=== PATIENT | female | born 1950 | race Hispanic/Latino ===

== ENCOUNTER 2018-05-20 11:10 | Emergency (ER) | payer MEDICARE, OTHER ==
[~2018-05-20] VITALS: Ht 165.1 cm; Wt 77.1 kg
--- OUTSIDE RECORDS SUMMARY | 2018-05-20 11:12 | XMS REPORT | Clinical Summary ---
Author Author LUIGI [facility] Organization [facility] Address Unknown Phone Unavailable Care Team Providers Care Boilermaking Supervisor Name Role Phone Zakia Russell PCP Unavailable Allergies Not on File Medications Not on file Active Problems Not on file Encounters Care Team Description Date Type Specialty Sudheer Acuna MD Screening for osteoporosis 07/30/2017 Hospital Encounter Sudheer Acuna MD Visit for screening mammogram 07/30/2017 Hospital Encounter System, Provider Not In Screening for osteoporosis (Primary Dx) 07/23/2017 Outside Orders Central Scheduling after 05/19/2017 Social History Date Tobacco Use Types Packs/Day Years Used Never Assessed Sex Assigned at Date Recorded Not on file Industry Job Start Date Occupation Not on file Not on file Not on file Travel End Travel History Travel Start No recent travel history available. Last Filed Vital Signs Not on file Plan of Treatment Not on file Procedures Comments Procedure Name Priority Date/Time Associated Diagnosis XR DXA BONE DENSITY STUDY Routine 07/30/2017 Screening for 2:42 PM CDT osteoporosis MM DIGITAL MAMMO SCREEN Routine 07/30/2017 Visit for screening BILATERAL 2:13 PM CDT mammogram after 05/19/2017 Results * XR DXA Bone Density Study (07/30/2017 2:42 PM CDT) Narrative Performed At FINAL REPORT [facility] Bone Mineral Density, 07/30/2017. History Provided: Screening Comparison: 07/21/2014. Findings: Bone Mineral Density Measurement (BMD) - Lumbar Spine: 1.068 gm/cm2 Left Femoral Neck: 0.857 gm/cm2 Right Femoral Neck: 0.811 gm/cm2 Standard Deviation as compared to the young adult population (T -score)- Lumbar Spine: -0.9 Left Femoral Neck: -1.3 Right Femoral Neck: -1.6 Standard Deviation as compared to the age matched controls (Z-score)- Lumbar Spine: 0.2 Left Femoral Neck: -0.2 Right Femoral Neck: -0.5 IMPRESSION: WHO classification of osteopenia for the bilateral femoral necks. WHO classification of normal for the lumbar spine. Compared to the prior exam, the bone mineral density of the lumbar spine demonstrates a 1.2% decrease.The bone density of the left femoral neck demonstrates a 4.5% decrease.The bone mineral density of the right femoral neck demonstrates a 3.4% increase. Diagnostic criteria (World Health Organization)- Normal: BMD measurement less than one standard deviation from young adult population Osteopenia: BMD measurement between 1 and 2.4 standard deviations below Osteoporosis: BMD measurement greater than or equal to 2.5 standard deviations below Severe osteoporosis: Osteoporosis and one or more fragility fractures Signed: Briana Rocha MD Report Verified Date/Time:07/30/2017 14:44:40 Reading Location: [facility] Mammo Reading Room Procedure Note Interface, External Ris In - 07/30/2017 2:46 PM CDT FINAL REPORT Bone Mineral Density, 07/30/2017. History Provided: Screening Comparison: 07/21/2014. Findings: Bone Mineral Density Measurement (BMD) - Lumbar Spine: 1.068 gm/cm2 Left Femoral Neck: 0.857 gm/cm2 Right Femoral Neck: 0.811 gm/cm2 Standard Deviation as compared to the young adult population (T -score)- Lumbar Spine: -0.9 Left Femoral Neck: -1.3 Right Femoral Neck: -1.6 Standard Deviation as compared to the age matched controls (Z-score)- Lumbar Spine: 0.2 Left Femoral Neck: -0.2 Right Femoral Neck: -0.5 IMPRESSION: WHO classification of osteopenia for the bilateral femoral necks. WHO classification of normal for the lumbar spine. Compared to the prior exam, the bone mineral density of the lumbar spine demonstrates a 1.2% decrease. The bone density of the left femoral neck demonstrates a 4.5% decrease. The bone mineral density of the right femoral neck demonstrates a 3.4% increase. Diagnostic criteria (World Health Organization)- Normal: BMD measurement less than one standard deviation from young adult population Osteopenia: BMD measurement between 1 and 2.4 standard deviations below Osteoporosis: BMD measurement greater than or equal to 2.5 standard deviations below Severe osteoporosis: Osteoporosis and one or more fragility fractures Signed: Briana Rocha MD Report Verified Date/Time: 07/30/2017 14:44:40 Reading Location: [facility] Mammo Reading Room Performing Organization Address City/State/Zipcode Phone Number [facility] * Mammogram Screening Bilateral (07/30/2017 2:13 PM CDT) Narrative Performed At [facility] #[id number] - MM, DIGITAL, MAMMO, SCREENING, BILATERAL INCLUDING CAD BILATERAL DIGITAL SCREENING MAMMOGRAM WITH CAD: 07/30/2017 Comparison is made to exams dated:09/04/2015 mammogram and 07/21/2014 mammogram - [facility]. The tissue of both breasts is heterogeneously dense. This may lower the sensitivity of mammography. Current study was also evaluated with a Computer Aided Detection (CAD) system. Benign appearing calcifications are present in both breasts.No significant masses, calcifications, or other findings are seen in either breast. IMPRESSION: BENIGN There is no mammographic evidence of malignancy. A 1 year screening mammogram is recommended. Shell Davidson M.D. pth/penrad:07/30/2017 16:07:39 Normal Exam Mammogram BI-RADS: 2 Benign G0202 Procedure Note Interface, External Ris In - 07/31/2017 7:29 AM CDT #[id number] - MM, DIGITAL, MAMMO, SCREENING, BILATERAL INCLUDING CAD BILATERAL DIGITAL SCREENING MAMMOGRAM WITH CAD: 07/30/2017 Comparison is made to exams dated: 09/04/2015 mammogram and 07/21/2014 mammogram - [facility]. The tissue of both breasts is heterogeneously dense. This may lower the sensitivity of mammography. Current study was also evaluated with a Computer Aided Detection (CAD) system. Benign appearing calcifications are present in both breasts. No significant masses, calcifications, or other findings are seen in either breast. IMPRESSION: BENIGN There is no mammographic evidence of malignancy. A 1 year screening mammogram is recommended. Shell Davidson M.D. pth/penrad:07/30/2017 16:07:39 Normal Exam Mammogram BI-RADS: 2 Benign G0202 Performing Organization Address City/State/Zipcode Phone Number [facility] after 05/19/2017 Insurance Payer Benefit Subscriber ID Type Phone Address Plan / Group [employer] - MGD CARE [employer] xxxxxxxxxxx HMO/POS HMO/POS/OP EN ACCESS
--- OUTSIDE RECORDS SUMMARY | 2018-05-20 11:12 | XMS REPORT ---
Author Author [facility] Address Unknown Phone Unavailable Care Team Providers Care Cruise Guide Name Role Phone Unavailable Unavailable Problems This patient has no known problems. Allergies, Adverse Reactions, Alerts This patient has no known allergies or adverse reactions. Medications This patient has no known medications. Results Test Description Test Time Test Comments Text Results Atomic Results Result Comments MM, DIGITAL, MAMMO, SCREENING, BILATERAL INCLUDING CAD 2017-07-30 16:07:00 Reason for Exam:->Z12.31 #[id number] - MM, DIGITAL, MAMMO, SCREENING, BILATERAL INCLUDING CADBILATERAL DIGITAL SCREENING MAMMOGRAM WITH CAD: 07/30/2017Comparison is made to exams dated: 09/04/2015 mammogram and 07/21/2014 mammogram - [facility]. The tissue of both breasts is heterogeneously dense. This may lower the sensitivity of mammography. Current study was also evaluated with a Computer Aided Detection (CAD) system. Benign appearing calcifications are present in both breasts. No significant masses, calcifications, or other findings are seen in either breast. IMPRESSION: BENIGNThere is no mammographic evidence of malignancy. A 1 year screening mammogram is recommended. Shell Davidson M.D. pth/penrad:07/30/2017 16:07:39 Normal Exam Mammogram BI-RADS: 2 Benign G0202 , BONE DENSITY STUDY 2017-07-30 14:44:00 Reason for Exam:->screening FINAL REPORT Bone Mineral Density, 07/30/2017. History Provided: Screening Comparison: 07/21/2014. Findings: Bone Mineral Density Measurement (BMD) -Lumbar Spine: 1.068 gm/uw3Mbzr Femoral Neck: 0.857 gm/nw2Xemdy Femoral Neck: 0.811 gm/cm2 Standard Deviation as compared to the young adult population (T -score)-Lumbar Spine: -0.9 Left Femoral Neck: -1.3 Right Femoral Neck: -1.6 Standard Deviation as compared to the age matched controls (Z-score)-Lumbar Spine: 0.2Left Femoral Neck: -0.2 Right Femoral Neck: -0.5 IMPRESSION:WHO classification of osteopenia for the bilateral femoral necks. WHO classification of normal for the lumbar spine. Compared to the prior exam, the bone mineral density of the lumbar spine demonstrates a 1.2% decrease. The bone density of the left femoral neck demonstrates a 4.5% decrease. The bone mineral density of the right femoral neck demonstrates a 3.4% increase. Diagnostic criteria (World Health Organization)-Normal: BMD measurement less than one standard deviation from young adult populationOsteopenia: BMD measurement between 1 and 2.4 standard deviations belowOsteoporosis: BMD measurement greater than or equal to 2.5 standard deviations belowSevere osteoporosis: Osteoporosis and one or more fragility fractures Signed: Briana Rocha [facility] Verified Date/Time: 07/30/2017 14:44:40 Reading Location: [facility] Mammo Reading Room
== END 2018-05-20 11:41 | disposition home or self-care (01) ==
LOC: FSED 11:10
DX: R05 Cough (principal); J00 Acute nasopharyngitis [common cold]
CPT/HCPCS: 99282

== ENCOUNTER 2018-05-26 13:08 | Emergency (ER) | payer OTHER, MEDICARE ==
[~2018-05-26] VITALS: Ht 165.1 cm; Wt 77.1 kg
--- OUTSIDE RECORDS SUMMARY | 2018-05-26 13:10 | XMS REPORT | Clinical Summary ---
Author Author LUIGI [facility] Organization [facility] Address Unknown Phone Unavailable Care Team Providers Care Medical Record Specialist Name Role Phone Zakia Russell PCP Unavailable Allergies Not on File Medications Not on file Active Problems Not on file Encounters Care Team Description Date Type Specialty Sudheer Acuna MD Screening for osteoporosis 07/30/2017 Hospital Encounter Sudheer Acuna MD Visit for screening mammogram 07/30/2017 Hospital Encounter System, Provider Not In Screening for osteoporosis (Primary Dx) 07/23/2017 Outside Orders Central Scheduling after 05/25/2017 Social History Date Tobacco Use Types Packs/Day [...] screening BILATERAL 2:13 PM CDT mammogram after 05/25/2017 Results * XR DXA Bone Density Study (07/30/2017 2:42 PM CDT) Narrative Performed At FINAL REPORT [facility] Bone Mineral Density, 07/30/2017. History Provided: Screening [...] MD Report Verified Date/Time:07/30/2017 14:44:40 Reading Location: [facility] Mammo Reading Room Procedure Note Interface, External [...] Report Verified Date/Time: 07/30/2017 14:44:40 Reading Location: [facility] Mammo Reading Room Performing Organization Address City/State/Zipcode Phone Number [facility] * Mammogram Screening Bilateral (07/30/2017 2:13 PM CDT) Narrative Performed At [facility] #[id number] - MM, DIGITAL, MAMMO, SCREENING, BILATERAL INCLUDING CAD BILATERAL DIGITAL SCREENING MAMMOGRAM WITH CAD: 07/30/2017 Comparison is made to exams dated:09/04/2015 mammogram and 07/21/2014 mammogram - [facility]. The tissue of both breasts is heterogeneously [...] Ris In - 07/31/2017 7:29 AM CDT #[id number] - MM, DIGITAL, MAMMO, SCREENING, BILATERAL INCLUDING CAD BILATERAL DIGITAL SCREENING MAMMOGRAM WITH CAD: 07/30/2017 Comparison is made to exams dated: 09/04/2015 mammogram and 07/21/2014 mammogram - [facility] hospital?[facility]. The tissue of both breasts is heterogeneously [...] Address City/State/Zipcode Phone Number [facility] after 05/25/2017 Insurance Payer Benefit Subscriber ID Type Phone Address Plan / Group [employer] - MGD CARE [employer] xxxxxxxxxxx HMO/POS HMO/POS/OP EN ACCESS
--- NOTE | 2018-05-26 14:28 | Diagnostic Imaging Report ---
EXAMINATION: PA and lateral views of the chest. COMPARISON: None CLINICAL HISTORY: Cough, chest pain DISCUSSION: The lungs are well-inflated. No focal consolidation, pleural effusion, or pneumothorax. 1.6 cm nodular opacity likely within the medial segment of the right lower lobe. Cardiomediastinal contour and pulmonary vasculature are within normal limits. No acute osseous abnormality. IMPRESSION: No acute cardiopulmonary abnormality. 1.6 cm nodular opacity within the right lower lung. In the absence of prior chest radiographs for comparison purposes, further evaluation with nonemergent CT scan of the chest with contrast is suggested. Signed by: Dr. Miguel Min M.D. on 05/26/2018 2:25 PM
[2018-05-26] MEDS ORDERED: ZITHROMAX250 MG PO (15:10)
[2018-05-26] MEDS ORDERED: ALBUTEROL2.5 MG/3 M INH (15:12)
[2018-05-26 15:36] VITALS: BP 148/86
== END 2018-05-26 15:37 | disposition home or self-care (01) ==
LOC: FSED 13:08
DX: J20.9 Acute bronchitis, unspecified (principal); R05 Cough; E78.5 Hyperlipidemia, unspecified; J00 Acute nasopharyngitis [common cold]; R91.8 Other nonspecific abnormal finding of lung field
CPT/HCPCS: 71046; 99283

== ENCOUNTER 2021-03-11 13:23 | Emergency (ER) | payer MEDICARE, OTHER ==
[~2021-03-11] VITALS: Ht 165.1 cm; Wt 74.9 kg
[~2021-03-11 13:23] MED LIST: ALBUTEROL2.5 MG/3 M INH; ZITHROMAX250 MG PO
[2021-03-11] MEDS ORDERED: BENTYL10 MG/1 ML PO (13:49)
[2021-03-11] MEDS ORDERED: METRONIDAZOLE500 MG PO (14:49)
[2021-03-11] MEDS ORDERED: CIPRO500 MG PO (14:50)
[2021-03-11] MEDS ORDERED: ONDANSETRON ODT4 MG PO (14:52)
== END 2021-03-11 15:05 | disposition home or self-care (01) ==
LOC: FSED 13:52
DX: K57.32 Diverticulitis of large intestine without perforation or abscess without bleeding (principal); E78.5 Hyperlipidemia, unspecified; N20.0 Calculus of kidney
CPT/HCPCS: 74176; 81003; 99283

== ENCOUNTER 2021-12-17 14:09 | Emergency (ER) | payer MEDICARE, OTHER ==
[~2021-12-17] VITALS: Ht 165.1 cm; Wt 79.2 kg
[~2021-12-17 14:09] MED LIST changes: +BENTYL10 MG/1 ML PO; +CIPRO500 MG PO; +METRONIDAZOLE500 MG PO; +ONDANSETRON ODT4 MG PO
[2021-12-17] MEDS ORDERED: NAPROSYN500 MG PO (15:27)
[2021-12-17] MEDS ORDERED: SIMVASTATIN40 MG PO (15:27)
[2021-12-17] MEDS ORDERED: IBUPROFEN200 MG PO (15:34)
[2021-12-17] MEDS ORDERED: ACETAMINOPHEN500 MG PO (15:34)
== END 2021-12-17 16:39 | disposition home or self-care (01) ==
LOC: FSED 14:16
DX: S06.0X0A Concussion without loss of consciousness, initial encounter (principal); S20.219A Contusion of unspecified front wall of thorax, initial encounter; M25.512 Pain in left shoulder; W01.0XXA Fall on same level from slipping, tripping and stumbling without subsequent striking against object, initial encounter; Y93.01 Activity, walking, marching and hiking; Y92.89 Other specified places as the place of occurrence of the external cause; E78.5 Hyperlipidemia, unspecified; Z87.19 Personal history of other diseases of the digestive system
CPT/HCPCS: 70450; 71250; 99283